=== PATIENT | male | born 2000 | race Caucasian/White ===

== ENCOUNTER 2019-08-23 08:23 | Day surgery (SDC) | payer BC ==
[~2019-08-23 08:23] MED LIST: Bupivacaine 25%/EPINEPHrine/PF 30 ML ONE; Lactated Ringers 1,000 ML IV SCH; Octyl 2-Cyanoacrylate 1 Tube ONE; ceFAZolin 2 GM in Premix Bag 1 BAG IV ONE
[2019-08-23] MEDS ORDERED: Lidocaine 2% 5 ML SDV ONE (08:46)
[2019-08-23] MEDS ORDERED: Midazolam 1 MG/ML 2 ML SDV ONE (08:47)
[2019-08-23] MEDS ORDERED: Propofol 200 MG/20 ML SDV ONE (08:47)
[2019-08-23] MEDS ORDERED: fentaNYL 100 MCG/2 ML SDV ONE (08:47)
--- NOTE | 2019-08-23 08:47 | PCM.PREANE ---
Preanesthetic Assessment - Anesthesia/Transfusion/Family Hx Anesthesia History: Prior Anesthesia Without Reaction Family History of Anesthesia Reaction: No Transfusion History: No Prior Transfusion(s) Intubation History: Unknown - Review of Systems General: No Symptoms Pulmonary: No Symptoms Cardiovascular: No Symptoms Gastrointestinal: No Symptoms Neurological: No Symptoms Other: Reports: None - Physical Assessment Height: 5 ft 9 in Weight: 95.254 kg ASA Class: 5E Emergency Airway Class: Mallampati = 1 Dentition: Reports: Normal Dentition Thyro-Mental Finger Breadths: 3 Mouth Opening Finger Breadths: 3 ROM/Head Extension: Full Lungs: Clear to Auscultation, Normal Respiratory Effort Cardiovascular: Regular Rate, Regular Rhythm - Allergies Allergies/Adverse Reactions: Allergies Allergy/AdvReac Type Severity Reaction Status Date / Time No Known Allergies Allergy Verified 08/21/19 09:39 - Blood Blood Available: No - Anesthesia Plan Pre-Op Medication Ordered: None - Acknowledgements Anesthesia Type Planned: MAC Pt an Appropriate Candidate for the Planned Anesthesia: Yes Alternatives and Risks of Anesthesia Discussed w Pt/Guardian: Yes Pt/Guardian Understands and Agrees with Anesthesia Plan: Yes PreAnesthesia Questionnaire HEENT History: Reports: None Cardiovascular History: Reports: None Respiratory History: Reports: None Gastrointestinal History: Reports: None Genitourinary History: Reports: None Musculoskeletal History: Reports: None Neurological History: Reports: Other (See Below) Other Neuro History: petit mal seizures as a child (4 years old) Psychiatric History: Reports: Anxiety Endocrine/Metabolic History: Reports: Obesity/BMI 30+ Hematologic History: Reports: None Immunologic History: Reports: None Oncologic (Cancer) History: Reports: None Dermatologic History: Reports: None - Past Surgical History Head Surgeries/Procedures: Reports: None HEENT Surgical History: Reports: Myringotomy w Tube(s) Cardiovascular Surgical History: Reports: None Respiratory Surgical History: Reports: None GI Surgical History: Reports: None Male Surgical History: Reports: None Endocrine Surgical History: Reports: None Neurological Surgical History: Reports: None Musculoskeletal Surgical History: Reports: None Oncologic Surgical History: Reports: None Dermatological Surgical History: Reports: None - SUBSTANCE USE Smoking Status *Q: Never Smoker Recreational Drug Use History: No - HOME MEDS Home Medications: Home Meds . [No Known Home Meds] 08/21/19 [History] - CURRENT (IN HOUSE) MEDS Current Meds: Current Medications Lactated Ringer's (Ringers, Lactated) 1,000 mls @ 125 mls/hr IV ASDIRECTED MERLIN Discontinued Medications Cefazolin Sodium/Dextrose 2 gm (/ Premix) 50 mls @ 100 mls/hr IV ONETIME ONE Stop: 08/23/19 01:58 Bupivacaine HCl/Epinephrine Bitart (Sensorc Mpf 0.25%-Epi [id number]) Confirm Administered Dose 30 mls @ as directed .ROUTE .STK-MED ONE Stop: 08/23/19 08:08 Octyl Cyanoacrylate (Dermabond Advance) Confirm Administered Dose 1 applic .ROUTE .STK-MED ONE Stop: 08/23/19 08:08
[2019-08-23] MEDS ORDERED: ceFAZolin/Dextrose,Iso-Osmotic 2 GM/50 ML Duplex Bag IV ONE (09:37)
[2019-08-23] MEDS ORDERED: Ondansetron 4 MG/2 ML SDV ONE (09:45)
[2019-08-23] MEDS ORDERED: Ketorolac 30 MG/ML SDV ONE (09:45)
--- NOTE | 2019-08-23 10:29 | PCM.POSTAN ---
POST ANESTHESIA ASSESSMENT - MENTAL STATUS Mental Status: Alert, Oriented - VITAL SIGNS Vital Signs: Last Vital Signs Temp 36.6 C 08/23/19 10:02 Pulse 53 L 08/23/19 10:22 Resp 9 L 08/23/19 10:22 BP 92/51 L 08/23/19 10:22 Pulse Ox 96 08/23/19 10:22 - RESPIRATORY Respiratory Status: Respiratory Rate WNL, Airway Patent, O2 Saturation Stable - CARDIOVASCULAR CV Status: Pulse Rate WNL, Blood Pressure Stable - GASTROINTESTINAL GI Status: No Symptoms - PAIN Pain Score: 0 - POST OP HYDRATION Hydration Status: Adequate & Stable - OBSERVATIONS Free Text/Narrative:: No anesthesia problems
--- NOTE | 2019-08-23 11:05 | PCM48HPAN ---
Post Anesthesia Note - EVALUATION WITHIN 48HRS OF ANESTHETIC Vital Signs in Normal Range: Yes Patient Participated in Evaluation: Yes Respiratory Function Stable: Yes Airway Patent: Yes Cardiovascular Function Stable: Yes Hydration Status Stable: Yes Pain Control Satisfactory: Yes Nausea and Vomiting Control Satisfactory: Yes Mental Status Recovered: Yes Vital Signs: Last Vital Signs Temp 36.6 C 08/23/19 10:02 Pulse 53 L 08/23/19 10:22 Resp 9 L 08/23/19 10:22 BP 92/51 L 08/23/19 10:22 Pulse Ox 96 08/23/19 10:22 - COMMENTS/OBSERVATIONS Free Text/Narrative:: No anesthesia problems
--- NOTE | 2019-08-23 11:25 | PCM.OPNOTE ---
- General Post-Op/Procedure Note Date of Surgery/Procedure: 08/23/19 Operative Procedure(s): excisional bx scalp lesion Findings: pigmented lesion, asymmetric, raised border, excise en bloc w skin and generous margin; see [id number] Pre Op Diagnosis: scalp lesion Post-Op Diagnosis: Same Anesthesia Technique: Local, MAC, Moderate Sedation Primary Surgeon: Nathan Campbell Pathology: long face, short back Complications: None Condition: Good Free Text/Narrative:: Intake & Output 08/22/19 08/23/19 08/23/19 22:59 06:59 14:59 Intake Total 700 Balance 700
--- NOTE | 2019-08-23 12:29 | OR ---
SURGEON: Nathan Campbell MD DATE OF PROCEDURE: 08/23/2019 PREOPERATIVE DIAGNOSIS: Scalp lesion. POSTOPERATIVE DIAGNOSIS: Scalp lesion. PROCEDURE PERFORMED: Excisional biopsy. PRIMARY SURGEON: Nathan Campbell MD. COMPLICATIONS: None. FINDINGS: There is a pigmented lesion, irregular, raised border, 9 x 8 mm, at the right side of the occiput. It was excised with a generous margin. Skin incision is 3.1 X 1.6 cm. DESCRIPTION OF PROCEDURE: The patient was taken to the operating room and placed in a supine position. Upon induction of mild general sedation, the patient repositioned into a left decub position, left side down, right side up. The patient's occiput area had been shaved. Gave a 15 cm diameter hairline, and the patient was then prepped and draped in a sterile fashion. Time-out was being called, patient identified, procedure identified, and antibiotic given. Procedure then started. 1% lidocaine with epi was infiltrated and a fish-mouth incision with generous margin was used to excise the lesion. The lesion was a pigmented lesion, raised border, asymmetry. The skin incision was 3.1 x 1.6 cm. The whole thing was excised. The specimen was oriented with a long stitch towards the anterior, short stitch towards the back, sent for pathology. The excision was down to the scalp area. Good hemostasis use achieved by the electrocautery. The wound was closed with baseball stitches, simple interrupted using 3-0 Ethilon and followed with bacitracin cream topically. The patient was awakened, transferred to recovery in hemodynamically stable condition. The patient tolerated the procedure well with no intraoperative complications. Dr. Campbell was present through the whole procedure. NENA / CARLOS /[id number]
== END 2019-08-23 11:23 | disposition home or self-care (01) ==
LOC: MW.SDS 08:23
PROVIDERS: ATTEND Surgery
DX: D22.4 Melanocytic nevi of scalp and neck (principal); F41.9 Anxiety disorder, unspecified; E66.9 Obesity, unspecified; Z68.31 Body mass index [BMI] 31.0-31.9, adult
CPT/HCPCS: 11423; 88305; J0690; J1885; J2001; J2250; J2405; J2704; J3010; J7120; 00300; A9270-GY